=== PATIENT | female | born 2000 | race African-American/Black ===

== ENCOUNTER 2020-10-28 12:30 | Emergency (ER) | payer MEDICAID ==
[~2020-10-28] VITALS: Ht 162.6 cm; Wt 63.0 kg
[2020-10-28 12:32] VITALS: BP 133/71
[2020-10-28] MEDS ORDERED: CEFTRIAXONE SODIUM 500 MG/VIAL IM STA (12:58)
[2020-10-28] MEDS ORDERED: AZITHROMYCIN 500 MG TABLET PO ONE (13:00)
[2020-10-28] MEDS ORDERED: LIDOCAINE HCL 1% 20ML VIAL (Pyxis) INJ INFIL ONE (13:00)
[2020-10-28] MEDS ORDERED: METR-167 PO (13:27)
[2020-10-28 13:47] LABS: CLARITY URINE CLOUDY (CLEAR); COLOR URINE YELLOW (YELLOW); KETONES URINE NEGATIVE (NEGATIVE); LEUKOCYTE ESTERASE URINE NEGATIVE (NEGATIVE); NITRITE URINE NEGATIVE (NEGATIVE); OCCULT BLOOD URINE NEGATIVE (NEGATIVE); PH URINE >=9.0 (4.5-8.0); PROTEIN URINE TRACE (NEGATIVE); SPECIFIC GRAVITY URINE 1.024 (1.005-1.030)
== END 2020-10-28 14:16 | disposition home or self-care (01) ==
LOC: ER 12:30
DX: Z20.2 Contact with and (suspected) exposure to infections with a predominantly sexual mode of transmission (principal); Z88.0 Allergy status to penicillin
CPT/HCPCS: 81003; 81025; 96372; 99283; J0696; J3490; Z7610